=== PATIENT | male | born 1980 | race Caucasian/White ===

== ENCOUNTER 2017-05-29 18:48 | Emergency (ER) | payer BC, MEDICAID ==
[~2017-05-29] VITALS: Ht 182.9 cm; Wt 66.9 kg
[~2017-05-29 18:48] MED LIST: HYDR-3534 PO; MEDR4PAK3 PO
[2017-05-29 18:52] VITALS: BP 129/69; PULSE 59; RESP 18; TEMP 98.5; O2SAT 100
[2017-05-29] MEDS ORDERED: SODIUM CHLORIDE 0.9% FLUSH 10 ML FLUSH IV FLUSH PRN (19:15)
[2017-05-29] MEDS ORDERED: SODIUM CHLOR 0.9% 1000 ML INJ 1,000 ML IV ONE (19:15)
[2017-05-29] MEDS ORDERED: SODIUM CHLOR 0.9% 1000 ML INJ 1,000 ML IV SCH (19:15)
[2017-05-29] MEDS ORDERED: ONDANSETRON HCL 4 MG/2 ML VIAL IVP ONE (19:15)
--- NOTE | 2017-05-29 19:22 | PD ---
HPI Chief Complaint: Abdominal Pain Time Seen by Provider: 19:15 Travel History International Travel<30 days: No Contact w/Intl Traveler<30days: No Traveled to known affect area: No History of Present Illness HPI 37-year-old male presents to the emergency department for complaint of 2 days of nausea vomiting abdominal cramping. Patient reports that symptoms began yesterday with fatigue and dizziness with nausea and then this morning awakened with nausea vomiting diarrhea and crampy abdominal pain. Patient's had no hematemesis no coffee-ground emesis denies melena hematochezia or mucoid stools. 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 Patient denies fever or chills. Patient did reportedly drink indoor tap water yesterday. Patient denies any known dietary indiscretion well water ingestion or foreign travel. Patient has had similar symptoms in the past. Patient states he's been drinking water daily which is typical for him and attempts to remain well-hydrated. Patient denies any other chronic medical conditions and takes no prescription medications. Patient rates pain 10 over 10 intensity. PFSH Past Medical History Narrative Medical Gluten intolerance, Hwoe's esophagitis, occasional alcohol use no tobacco use ; nursing notes reviewed Diminished Hearing: No Gastrointestinal Disorders: Yes (HOWE'S ESOPHAGUS, GLUTEN INTOLERANCE) Social History Alcohol Use: Yes ("TWICE A WEEK") Tobacco Use: No (OCC CIGAR) Substance Use: No Allergies-Medications (Allergen,Severity, Reaction): Coded Allergies: Penicillin (Verified Allergy, Severe, Hives, 05/29/17) Wheat (Verified Allergy, Unknown, 05/29/17) Reported Meds & Prescriptions Reported Meds & Active Scripts Active No Active Prescriptions or Reported Medications Review of Systems Except as stated in HPI: all other systems reviewed are Neg General / Constitutional: No: Fever, Chills HENT: No: Congestion Cardiovascular: No: Chest Pain or Discomfort Respiratory: No: Shortness of Breath Gastrointestinal: Positive: Nausea, Vomiting, Diarrhea, Abdominal Pain, No: Hematemesis, Hematochezia, Loss of Appetite Genitourinary: No: Dysuria, Flank Pain Musculoskeletal: No: Myalgias, Arthralgias Skin: No Rash Neurologic: No: Weakness Psychiatric: No: Anxiety Hematologic/Lymphatic: No: Lymph Node Enlargement Physical Exam Narrative GENERAL: Well-developed well-nourished male in no acute respiratory distress; GCS 15; vital signs are normal range except for mild bradycardia SKIN: Warm and dry. HEAD: Normocephalic. EYES: No scleral icterus. No injection or drainage. NECK: Supple, trachea midline. No JVD or lymphadenopathy. CARDIOVASCULAR: Regular rate and rhythm without murmurs, gallops, or rubs. RESPIRATORY: Breath sounds equal bilaterally. No accessory muscle use. GASTROINTESTINAL: Abdomen soft, mildly diffusely tender without guarding or rebound, nondistended. MUSCULOSKELETAL: No cyanosis, or edema. BACK: Nontender without obvious deformity. No CVA tenderness. Data Data Last Documented VS Vital Signs Date Time Temp Pulse Resp B/P Pulse Ox O2 Delivery O2 Flow Rate FiO2 05/29/17 21:52 66 18 130/68 100 Room Air 05/29/17 21:09 98.1 Orders Complete Blood Count With Diff (05/29/17 19:15) Comprehensive Metabolic Panel (05/29/17 19:15) Lipase (05/29/17 19:15) Urinalysis - C+S If Indicated (05/29/17 19:15) Iv Access Insert/Monitor (05/29/17 19:15) Ecg Monitoring (05/29/17 19:15) Oximetry (05/29/17 19:15) Ondansetron Inj (Zofran Inj) (05/29/17 19:15) Sodium Chlor 0.9% 1000 Ml Inj (Ns 1000 M (05/29/17 19:15) Sodium Chloride 0.9% Flush (Ns Flush) (05/29/17 19:15) Sodium Chlor 0.9% 1000 Ml Inj (Ns 1000 M (05/29/17 19:15) Morphine Inj (Morphine Inj) (05/29/17 19:45) Ondansetron Inj (Zofran Inj) (05/29/17 20:45) Ct Abd/Pel W Iv Contrast(Rout) (05/29/17 ) Iohexol 350 Inj (Omnipaque 350 Inj) (05/29/17 20:56) Labs Laboratory Tests Test 05/29/17 05/29/17 19:25 20:31 White Blood Count 11.2 TH/MM3 Red Blood Count 5.77 MIL/MM3 Hemoglobin 17.0 GM/DL Hematocrit 51.0 % Mean Corpuscular Volume 88.5 FL Mean Corpuscular Hemoglobin 29.5 PG Mean Corpuscular Hemoglobin 33.3 % Concent Red Cell Distribution Width 12.4 % Platelet Count 175 TH/MM3 Mean Platelet Volume 8.0 FL Neutrophils (%) (Auto) 96.1 % Lymphocytes (%) (Auto) 1.6 % Monocytes (%) (Auto) 0.9 % Eosinophils (%) (Auto) 0.0 % Basophils (%) (Auto) 1.4 % Neutrophils # (Auto) 10.7 TH/MM3 Lymphocytes # (Auto) 0.2 TH/MM3 Monocytes # (Auto) 0.1 TH/MM3 Eosinophils # (Auto) 0.0 TH/MM3 Basophils # (Auto) 0.2 TH/MM3 CBC Comment DIFF FINAL Differential Comment Sodium Level 136 MEQ/L Potassium Level 3.7 MEQ/L Chloride Level 100 MEQ/L Carbon Dioxide Level 25.4 MEQ/L Anion Gap 11 MEQ/L Blood Urea Nitrogen 23 MG/DL Creatinine 1.10 MG/DL Estimat Glomerular Filtration 76 ML/MIN Rate Random Glucose 139 MG/DL Calcium Level 8.9 MG/DL Total Bilirubin 1.9 MG/DL Aspartate Amino Transf 27 U/L (AST/SGOT) Alanine Aminotransferase 36 U/L (ALT/SGPT) Alkaline Phosphatase 54 U/L Total Protein 7.4 GM/DL Albumin 4.3 GM/DL Lipase 106 U/L Urine Color YELLOW Urine Turbidity CLEAR Urine pH 6.5 Urine Specific Point 1.030 Urine Protein TRACE mg/dL Urine Glucose (UA) NEG mg/dL Urine Ketones 80 OR GREATER mg/dL Urine Occult Blood NEG Urine Nitrite NEG Urine Bilirubin NEG Urine Leukocyte Esterase NEG Urine RBC 0-2 /hpf Urine WBC 0-2 /hpf Urine Squamous Epithelial 0-5 /hpf Cells Urine Bacteria NONE /hpf Microscopic Urinalysis Comment CULT NOT INDICATED MDM Medical Decision Making Medical Screen Exam Complete: Yes Emergency Medical Condition: Yes Medical Record Reviewed: Yes Interpretation(s) UA: ketonuria, otherwise values in normal range Vital Signs Date Time Temp Pulse Resp B/P Pulse Ox O2 Delivery O2 Flow Rate FiO2 05/29/17 21:09 98.1 05/29/17 19:38 18 05/29/17 19:38 100 Room Air 05/29/17 18:52 98.5 59 18 129/69 100 CBC & BMP Diagram 05/29/17 19:25 Vital Signs Date Time Temp Pulse Resp B/P Pulse Ox O2 Delivery O2 Flow Rate FiO2 05/29/17 21:09 98.1 05/29/17 19:38 18 05/29/17 19:38 100 Room Air 05/29/17 18:52 98.5 59 18 129/69 100 Last Impressions Abdomen/Pelvis CT 05/29/17 0000 Signed Impressions: Service Date/Time: May 20:51 - CONCLUSION: Negative for acute process. I don't see an etiology for the vomiting abdominal pain. Marbin Luque MD FACR Differential Diagnosis Gastritis, gastroenteritis, food borne illness, dehydration, electrolyte disturbance Narrative Course IV access obtained specimens collected and sent for resulting patient administered 2 L normal saline AND ZOFRAN 4 MG IV CBC is automated differential mild elevation of total white cell count with left shift 92% neutrophils by automated differential Chemistries remarkable for being grossly within normal range except for nonspecific isolated total bilirubin of 1.9 review of medical record indicates patient chronically has elevated total bilirubin of 1.7 1.5 most likely reflects Gilbert's syndrome; patient with Mediterranean heredity. Patient does not have any localizing right upper quadrant tenderness or Ramirez sign on physical exam. CT abdomen and pelvis noncontrast reveals no acute intra-abdominal or pelvic abnormality/pathology. Patient feels well and is desirous of being discharged to home. Diagnosis Primary Impression: Gastroenteritis Additional Impressions: Dehydration Gilbert's syndrome Referrals: Primary Care Physician 1 day Patient Instructions: General Instructions, Narcotic given in the ED Departure Forms: Tests/Procedures, Work Release Special Instructions: no work x 1 day Additional Instructions: Follow clear liquid diet for next 12-24 hours advance as tolerated to bland/ Terence diet then regular diet as tolerated Use Zofran as prescribed as needed for nausea and/or vomiting Follow-up with her primary care provider call office in a.m. to schedule follow- up appointment Take acetaminophen/Tylenol as often as every 4 hours as needed for fever 100.4 F or greater Med/Other Pt SpecificInfo: Prescription(s) given Scripts Hydrocodone-Acetaminophen (Lortab)5-325 Mg Tab1 Tab PO Q6H PRN (PAIN) #7 TAB Ref 0 Prov:Marion Kenyon MD 05/29/17 Ondansetron Odt (Zofran Odt)4 Mg Tab4 Mg SL Q6HR PRN (Nausea/Vomiting) #10 TAB Ref 0 Prov:Marion Kenyon MD 05/29/17 Disposition: 01 DISCHARGE HOME Condition: Stable Marion Kenyon MD May 29, 2017 19:22
[2017-05-29 19:31] LABS: AUTOMATED NEUTROPHIL # 10.7 TH/MM3 (1.8-7.7); BASOPHIL # 0.2 TH/MM3 (0-0.2); BASOPHIL % 1.4 % (0.0-2.0); HEMO FLAGS DIFF FINAL; LYMPH % 1.6 % (9.0-44.0); LYMPHOCYTE # 0.2 TH/MM3 (1.0-4.8); MEAN CELL VOLUME 88.5 FL (80.0-100.0); MEAN CORPUSCULAR HEMOGLOBIN 29.5 PG (27.0-34.0); MEAN CORPUSCULAR HGB CONC 33.3 % (32.0-36.0); MONO % 0.9 % (0.0-8.0); NEUT % 96.1 % (16.0-70.0); PLATELET COUNT 175 TH/MM3 (150-450); RED BLOOD COUNT 5.77 MIL/MM3 (4.50-5.90); RED CELL DISTRIBUTION WIDTH 12.4 % (11.6-17.2); WHITE BLOOD COUNT 11.2 TH/MM3 (4.0-11.0)
[2017-05-29 19:38] VITALS: O2SAT 100
[2017-05-29 19:38] LABS: CHLORIDE 100 MEQ/L (98-107); POTASSIUM 3.7 MEQ/L (3.5-5.1); SODIUM (NA) 136 MEQ/L (136-145)
[2017-05-29 19:43] LABS: ANION GAP 11 MEQ/L (5-15); BICARBONATE 25.4 MEQ/L (21.0-32.0); BLOOD UREA NITROGEN 23 MG/DL (7-18)
[2017-05-29 19:45] LABS: ALT (GPT) 36 U/L (12-78); AST (GOT) 27 U/L (15-37); GLOMERULAR FILTRATION RATE 76 ML/MIN (>89)
[2017-05-29] MEDS ORDERED: MORPHINE SULFATE 8 MG/ML INJ IV PUSH ONE (19:45)
[2017-05-29 19:47] LABS: TOTAL BILIRUBIN ADULT 1.9 MG/DL (0.2-1.0)
[2017-05-29 19:48] LABS: ALKALINE PHOSPHATASE 54 U/L (45-117)
[2017-05-29] MEDS ORDERED: ONDANSETRON HCL 4 MG/2 ML VIAL IV PUSH ONE (20:45)
[2017-05-29 20:56] LABS: BLOOD, URINE NEG (NEG); GLUCOSE,URINE NEG (NEG); NITRITE,URINE NEG (NEG); PH, URINE 6.5 (5.0-8.5)
[2017-05-29] MEDS ORDERED: IOHEXOL 350 MG/ML 10 ML VIAL (for RAD DIAG) IV ONE (20:56)
[2017-05-29 21:01] LABS: KETONE, URINE 80 OR GREATER mg/dL (NEG)
[2017-05-29 21:02] LABS: COMMENT (UR) CULT NOT INDICATED; CULTURE IF INDICATED CULT NOT INDICATED; RBC, URINE 0-2 /hpf (0-3); SQUAMOUS EPITHELIAL CELL URINE 0-5 /hpf (0-5); URINE COLOR YELLOW (YELLW/STRAW); WBC, URINE 0-2 /hpf (0-5)
[2017-05-29 21:09] VITALS: TEMP 98.1
--- NOTE | 2017-05-29 21:34 | RADRPT ---
EXAM DATE/TIME: 05/29/2017 20:51 [facility] COMPARISON: No previous studies available for comparison. INDICATIONS : Abdominal pain , nausea, vomiting. IV CONTRAST: 96 cc Omnipaque 350 (iohexol) IV ORAL CONTRAST: No oral contrast ingested. RADIATION DOSE: 4.80 CTDIvol (mGy) MEDICAL HISTORY : De Paz's esophagus, bowel obstruction SURGICAL HISTORY : None. ENCOUNTER: Initial ACUITY: 1 day PAIN SCALE: 10/10 LOCATION: abdomen TECHNIQUE: Volumetric scanning of the abdomen and pelvis was performed. Using automated exposure control and ad justment of the mA and/or kV according to patient size, radiation dose was kept as low as reasonably achievable to obtain optimal diagnostic quality images. DICOM format image data is available electro nically for review and comparison. FINDINGS: The lung base is are clear. The liver, spleen, pancreas and adrenals are unremarkable. There is symmetrical renal function. The re is no ascites or adenopathy. Gallbladder is unremarkable. I don't seen evidence for pancreatitis There is scattered fluid filled loops of small bowel in the pelvis without inflammatory changes. Review of bone windows reveals no evidence for fracture or significant degenerative changes. CONCLUSION: Negative for acute process. I don't see an etiology for the vomiting abdominal pain. Marbin Luque MD FACR on May 29, 2017 at 21:30 Board Certified Radiologist. This report was verified electronically.
[2017-05-29 21:52] VITALS: BP 130/68; PULSE 66; RESP 18; O2SAT 100
[2017-05-29] MEDS ORDERED: HYDR-3533 PO (21:55)
[2017-05-29] MEDS ORDERED: ZOFR4TAB3 SL (21:55)
[2017-05-29 22:21] VITALS: BP 123/64; PULSE 75; RESP 18; O2SAT 100
== END 2017-05-29 22:23 | disposition home or self-care (01) ==
LOC: PHED 18:48
DX: K52.9 Noninfective gastroenteritis and colitis, unspecified (principal); E86.0 Dehydration; E80.4 Gilbert syndrome; K22.70 Barrett's esophagus without dysplasia; K90.41 Non-celiac gluten sensitivity
CPT/HCPCS: 74177; 80053; 81001; 83690; 85025; 96361; 96374; 96375; 96376; 99285; J2270; J2405; J7030; Q9967